=== PATIENT | female | born 1985 | race American Indian/Alaskan Native ===

== ENCOUNTER 2017-06-25 18:42 | Emergency (ER) | payer MEDICAID ==
[2017-06-25 19:05] VITALS: BMI 32.2
[2017-06-25 19:07] VITALS: BP 155/87; PULSE 68; RESP 18; TEMP 98.3; O2SAT 100
[2017-06-25] MEDS ORDERED: Bacitracin 500 Units/gm Oint Foilpak UD ONE (19:45)
--- NOTE | 2017-06-25 19:51 | C.PDOC ---
History Of Present Illness 31 y/o female c/o pain and increase swelling to the tip of the right middle finger after cutting her cuticle to short last week. Denies drainage, bleeding, fever, or any other complaints. Tetanus is UTD. Time Seen by Provider: 06/25/17 19:19 History Per: Patient History/Exam Limitations: no limitations Onset/Duration Of Symptoms: Hrs Current Symptoms Are (Timing): Still Present Quality: "Pain" Severity: Mild Recent travel outside of the [place]: No Additional History Per: Patient Past Medical History Reviewed: Historical Data, Nursing Documentation, Vital Signs Vital Signs: Last Vital Signs Temp 98.3 F 06/25/17 19:04 Pulse 68 06/25/17 19:04 Resp 18 06/25/17 19:04 BP 155/87 H 06/25/17 19:04 Pulse Ox 100 06/25/17 22:02 - [facility] Procedures MANUAL ASSIST DELIV NEC (03/07/13) REPAIR OB LACERATION NEC (03/07/13) TETANUS TOXOID ADMINIST (03/07/13) Family History: States: Unknown Family Hx - Social History Hx Alcohol Use: No Hx Substance Use: No - Immunization History Hx Tetanus Toxoid Vaccination: No Hx Influenza Vaccination: No Hx Pneumococcal Vaccination: No Review Of Systems Constitutional: Negative for: Fever Musculoskeletal: Positive for: Hand Pain (Swelling and pain to the right middle finger). Negative for: Other (Drainage or bleeding.) Physical Exam - Physical Exam Appears: Non-toxic, No Acute Distress Skin: Warm, Dry Eye(s): bilateral: Normal Inspection, PERRL Extremity: Normal ROM, Capillary Refill (<2secs), Swelling (Minimal swelling at base of nail bed.), Other (erythema to the lateral aspect of the nail bed of the right 3rd finger. No fluctuance or drainage.) Extremity: Bilateral: Normal Color And Temperature Pulses: Left Radial: Normal, Right Radial: Normal Neurological/Psych: Oriented x3, Normal Motor, Normal Sensation ED Course And Treatment O2 Sat by Pulse Oximetry: 100 (RA) Pulse Ox Interpretation: Normal Progress Note: Plans: wound clean. Area was cleaned with saline and bacitracin and dressing was applied. Patient was advised to follow up with PMD within 1-2 days for further evaluation and to return if symptoms worsen. Disposition Counseled Patient/Family Regarding: Diagnosis, Need For Followup, Rx Given - Disposition Disposition: HOME/ ROUTINE Disposition Time: 19:49 Condition: STABLE Additional Instructions: Keep finger clean Apply bacitracin ointment Take meds as directed Tylenol or advil for pain Return to ER if worse Prescriptions: Cephalexin [cephalexin] 500 mg PO QID #28 cap Instructions: Paronychia (ED) Forms: [facility] (Khmer) - Clinical Impression Clinical Impression: Paronychia - Scribe Statement The provider has reviewed the documentation as recorded by the Scriblynette honeycutt All medical record entries made by the Kayleeiblynette were at my direction and personally dictated by me. I have reviewed the chart and agree that the record accurately reflects my personal performance of the history, physical exam, medical decision making, and the department course for this patient. I have also personally directed, reviewed, and agree with the discharge instructions and disposition.
== END 2017-06-25 20:01 | disposition home or self-care (01) ==
LOC: C.ER 18:42
DX: L03.011 Cellulitis of right finger (principal)

== ENCOUNTER 2017-12-05 03:51 | Emergency (ER) | payer MEDICAID ==
[2017-12-05 03:51] VITALS: BMI 32.2
[2017-12-05 04:03] VITALS: RESP 20
[2017-12-05] MEDS ORDERED: DiphenhydrAMINE 50 mg/ml Inj IVP STA (04:24)
[2017-12-05] MEDS ORDERED: DiphenhydrAMINE 50 mg/ml Inj ONE (04:42)
[2017-12-05 04:50] LABS: BASO % 0.3 % (0.0-2.0); EOS # 0.2 K/uL (0.0-0.7); EOS % 1.8 % (0.0-4.0); HEMOGLOBIN 10.4 g/dL (11.0-16.0); LYMPH # 1.5 K/uL (1.0-4.3); LYMPH % 16.4 % (20.0-40.0); MEAN CELL VOLUME 79.8 fL (81.0-99.0); MEAN CORPUSCULAR HEMOGLOBIN 26.9 pg (27.0-31.0); MEAN CORPUSCULAR HGB CONC 33.7 g/dL (33.0-37.0); MEAN PLATELET VOLUME 7.9 fL (7.2-11.7); MONO # 0.6 K/uL (0.0-0.8); MONO % 6.1 % (0.0-10.0); NEUT % 75.4 % (50.0-75.0); RBC 3.87 Mil/uL (3.80-5.20); RED CELL DISTRIBUTION WIDTH 13.7 % (11.5-14.5); WHITE BLOOD COUNT 9.3 K/uL (4.8-10.8)
[2017-12-05 05:01] LABS: ALBUMIN 4.1 g/dL (3.5-5.0); ALT/SGPT 29 U/L (9-52); AST/SGOT 17 U/L (14-36); BLOOD UREA NITROGEN 10 mg/dL (7-17); CALCIUM 8.8 mg/dl (8.6-10.4); GFR AFRICAN-AMERICAN > 60; GFR NON-AFRICAN AMERICAN > 60
--- NOTE | 2017-12-05 06:11 | C.PDOC ---
History Of Present Illness 32 y/o female presents to the ED for evaluation of diffuse itchiness which began 2 days ago. Patient has not taken any medicine to relieve symptoms. Today , patient noted her lips appeared swollen. She reports PMHx of Iron Deficiency Anemia. Patient also began taking taking minocycline for acne as prescribed in the end of October. Patient denies fever, chills, trouble breathing/swallowing, throat itching/swelling sensation, tongue swelling, cough, shortness of breath, or history of similar symptoms in past. Time Seen by Provider: 12/05/17 04:04 Chief Complaint (Nursing): Abnormal Skin Integrity History Per: Patient History/Exam Limitations: no limitations Onset/Duration Of Symptoms: Hrs Current Symptoms Are (Timing): Still Present Quality Of Symptoms: Itching Additional History Per: Patient Past Medical History Reviewed: Historical Data, Nursing Documentation, Vital Signs Vital Signs: Last Vital Signs Temp 98.4 F 12/05/17 06:49 Pulse 74 12/05/17 06:49 Resp 20 12/05/17 06:49 BP 128/74 12/05/17 06:49 Pulse Ox 99 12/05/17 06:57 - Medical History PMH: No Chronic Diseases Surgical History: No Surg Hx - [facility] Procedures MANUAL ASSIST DELIV NEC (03/07/13) REPAIR OB LACERATION NEC (03/07/13) TETANUS TOXOID ADMINIST (03/07/13) Family History: States: Unknown Family Hx - Social History Hx Alcohol Use: Yes Hx Substance Use: No - Immunization History Hx Tetanus Toxoid Vaccination: No Hx Influenza Vaccination: No Hx Pneumococcal Vaccination: No Review Of Systems Constitutional: Negative for: Fever, Chills ENT: Negative for: Throat Pain, Throat Swelling Respiratory: Negative for: Cough, Shortness of Breath Skin: Positive for: Other (diffuse itching ) Physical Exam - Physical Exam Appears: Non-toxic, No Acute Distress, Other (itchy) Skin: Warm, Dry, Other (urticaria to left upper arm ) Head: Atraumatic, Normacephalic Eye(s): bilateral: Normal Inspection, EOMI Nose: Normal Oral Mucosa: Moist Tongue: No Swelling Lips: Swelling (mild) Throat: Normal, No Erythema, No Exudate, No Drooling Neck: Normal, Normal ROM, Supple Chest: Symmetrical, No Deformity, No Tenderness Cardiovascular: Rhythm Regular Respiratory: Normal Breath Sounds, No Rales, No Rhonchi, No Wheezing Extremity: Normal ROM, Capillary Refill (less than 2 seconds ) Neurological/Psych: Oriented x3, Normal Speech, Normal Cognition ED Course And Treatment - Laboratory Results Result Diagrams: 12/05/17 04:46 12/05/17 04:46 O2 Sat by Pulse Oximetry: 99 (on RA) Pulse Ox Interpretation: Normal Progress Note: Bloodwork ordered and reviewed. Benadryl IVP, Pepcid IVP and Solu-Medrol IVP administered. On reassessment, pt states she feels "much better ". Patient is resting comfortably, showing no signs of respiratory distress and reports that her symptoms have significantly improved. Patient denies shortness of breath or difficulty breathing at this time and is stable for discharge. Discussed that possible causes of symptoms include (but are not limited to) allergic reaction and/or iron deficiency anemia. Instructed to stop antibiotics for acne. Patient is instructed to f/u with PMD for further evaluation and/or return to the ED if symptoms persist or worsen. Reassessment Condition: Improved Disposition - Disposition Disposition: HOME/ ROUTINE Disposition Time: 06:09 Condition: STABLE Additional Instructions: Follow up with your PMD/ wet cotton feeder in 1-2 days. Return to ER if symptoms persist or worsen. Prescriptions: DiphenhydrAMINE [Benadryl] 25 mg PO Q6 #20 cap Famotidine [Pepcid] 20 mg PO BID #10 tab predniSONE [Prednisone] 40 mg PO DAILY #8 tab Instructions: General Allergic Reaction (ED) Forms: [facility] (Jordanian) - Clinical Impression Clinical Impression: Allergic reaction, Itching - PA / [employer] / Resident Statement MD/DO has reviewed & agrees with the documentation as recorded. - Scribe Statement The provider has reviewed the documentation as recorded by the Scribe (Pream Drake) All medical record entries made by the Scribe were at my direction and personally dictated by me. I have reviewed the chart and agree that the record accurately reflects my personal performance of the history, physical exam, medical decision making, and the department course for this patient. I have also personally directed, reviewed, and agree with the discharge instructions and disposition.
[2017-12-05 06:49] VITALS: BP 128/74; PULSE 74; TEMP 98.4
[2017-12-05 06:52] VITALS: O2SAT 99
== END 2017-12-05 07:24 | disposition home or self-care (01) ==
LOC: C.ER 03:51
DX: L50.0 Allergic urticaria (principal); L29.9 Pruritus, unspecified
CPT/HCPCS: 80053; 85025; 96374; 96375; 99283; J1200; J2930